=== PATIENT | female | born 1985 | race Caucasian/White ===

== ENCOUNTER 2017-04-05 08:52 | Outpatient (CLI) | payer OTHER ==
[2017-04-05 09:37] LABS: BASOPHILS % 1.1 (0.0-1.5); EOSINOPHILS % 9.3 % (0.0-6.8); MEAN CORPUSCULAR HEMOGLOBIN 31.8 pg (28.0-34.0); MEAN CORPUSCULAR VOLUME 93.9 fl (80.0-100.0); MONOCYTES % 5.3 % (0.0-11.0); NEUTROPHILS # 4.8 # k/uL (1.4-7.7)
[2017-04-05 09:50] LABS: eGFR (African) > 60; eGFR (Non-African) > 60
== END 2017-04-05 08:53 ==
LOC: LAB 08:52
PROVIDERS: ATTEND Family Medicine
DX: Z00.00 Encounter for general adult medical examination without abnormal findings (principal); Z13.29 Encounter for screening for other suspected endocrine disorder
CPT/HCPCS: 36415; 80053; 80061; 84443; 85025